=== PATIENT | female | born 1955 | race African-American/Black ===

== ENCOUNTER 2018-07-03 08:51 | Emergency (ER) | payer BC ==
[2018-07-03] MEDS ORDERED: Benzonatate 100 MG CAP ONE (10:08)
[2018-07-03] MEDS ORDERED: Ibuprofen 800 MG TAB ONE (10:08)
[2018-07-03] MEDS ORDERED: Dexamethasone 4 MG TAB ONE (10:08)
== END 2018-07-03 10:10 | disposition home or self-care (01) ==
LOC: MADERS 08:51
DX: J18.9 Pneumonia, unspecified organism (principal); F17.210 Nicotine dependence, cigarettes, uncomplicated; I10 Essential (primary) hypertension
CPT/HCPCS: 87804; 99283; J8540

== ENCOUNTER 2023-02-27 09:29 | Emergency (ER) | payer MEDICARE, OTHER ==
[2023-02-27] MEDS ORDERED: Acetaminophen 500 MG TAB ONE (09:56)
[2023-02-27 10:16] LABS: #Eosinphils 0.1 thou/uL (0.0-0.7); #Lymphocytes 1.2 thou/uL (1.20-3.40); #Monocytes 0.4 thou/uL (0.11-0.59); #Neutrophils 2.6 thou/uL (1.40-6.50); %Basophils 0.9 % (0.0-1.0); %Eosinophils 1.4 % (0.0-10.0); %Lymphocytes 28.3 % (21.0-51.0); %Monocytes 9.5 % (0.0-10.0); Hemoglobin 12.9 g/dL (12.0-16.0); Mean Corpuscular Volume 86.5 fl (78.0-98.0); Mean Platelet Volume 6.8 fL (7.4-10.4); Platelet Count 320 10x3/uL (130-400); RBC Distribution Width 19.5 % (11.5-14.5); Red Blood Cell (RBC) Count 4.97 mill/uL (4.20-5.40); White Blood Cell (WBC) Count 4.4 10x3/uL (4.8-10.8)
[2023-02-27 10:24] LABS: ALT (SGPT) 17 U/L (8-55); AST (SGOT) 21 U/L (5-34); Albumin 4.2 g/dL (3.4-4.8); Alkaline Phosphatase 203 U/L (40-110); Anion Gap 14 mmol/L (10-20); BUN (Urea Nitrogen) 9 mg/dL (9.8-20.1); Bilirubin, Total 0.4 mg/dL (0.2-1.2); Calc. Creatinine Clearance 0 mL/min (70-130); Calcium 9.8 mg/dL (7.8-10.44); Carbon Dioxide 25 mmol/L (23-31); Chloride 106 mmol/L (98-107); Estimated GFR 76; Globulin 3.2 g/dL (2.4-3.5); Glucose 86 mg/dL (80-115); Lipase 29 U/L (8-78); Potassium 3.8 mmol/L (3.5-5.1); Protein, Total 7.4 g/dL (5.8-8.1); Sodium 141 mmol/L (136-145)
[2023-02-27 10:26] LABS: Troponin I 0.012 ng/mL (< 0.028)
[2023-02-27 12:24] LABS: Troponin I Less than 0.010 ng/mL (< 0.028)
== END 2023-02-27 12:32 | disposition home or self-care (01) ==
LOC: MADERS 09:29
DX: R07.89 Other chest pain (principal); I10 Essential (primary) hypertension; Z79.899 Other long term (current) drug therapy; F17.210 Nicotine dependence, cigarettes, uncomplicated
CPT/HCPCS: 36415; 71045; 80053; 83690; 83880; 84484; 85025; 93005; 94760